=== PATIENT | female | born 1940 | race Hispanic/Latino ===

== ENCOUNTER → 2017-12-12 | Day surgery (SDC) | payer MEDICARE ==
[2017-12-07 12:48] LABS: BASOPHILS % 0.6 % (0.0-1.0); EOSINOPHILS # (AUTO) 0.1 (0.0-0.4); EOSINOPHILS % 1.6 % (0.0-6.0); HEMATOCRIT 36.7 % (34.2-44.1); HEMOGLOBIN 11.6 g/dL (12.0-16.0); LYMPHOCYTES # (AUTO) 1.8 (1.0-3.2); LYMPHOCYTES % 27.2 % (18.0-39.1); MEAN CORPUSCULAR HEMOGLOBIN 28.2 pg (28-32); MEAN CORPUSCULAR HGB CONC 31.6 g/dL (31-35); MEAN CORPUSCULAR VOLUME 89.1 fL (81-99); MONOCYTES # (AUTO) 0.5 (0.2-0.8); MONOCYTES % 6.7 % (4.4-11.3); NEUTROPHILS # (AUTO) 4.3 (2.1-6.9); NEUTROPHILS % 63.6 % (38.7-80.0); PLATELET COUNT 147 x10e3/uL (140-360); RED BLOOD COUNT 4.12 x10e6/uL (3.6-5.1); RED CELL DISTRIBUTION WIDTH 13.7 % (11.7-14.4)
--- NOTE | 2017-12-07 13:10 | Diagnostic Imaging Report ---
PROCEDURE: Frontal and lateral views of the chest. COMPARISON: None. INDICATIONS: PRE-OP, LEFT SHOULDER SURGERY. DENIES CHEST COMPLAINTS FINDINGS: Lines/tubes: None. Lungs: The lungs are well inflated and clear. There is no evidence of pneumonia or pulmonary edema. Pleura: There is no pleural effusion or pneumothorax. Heart and mediastinum: The heart and the mediastinum are normal. Significant atherosclerotic calcification throughout the entire aorta. Bones: No acute bony abnormality. Degenerative changes in the thoracic spine. IMPRESSION: No acute cardiopulmonary disease. Dictated by: Isma Mckeon M.D. on 12/07/2017 at 13:11 Electronically approved by: Isma Mckeon M.D. on 12/07/2017 at 13:11
[2017-12-07 13:19] LABS: ANION GAP 13.4 mmol/L (8-16); CALCIUM 9.8 mg/dL (8.4-10.2); CREATININE, SERUM 0.99 mg/dL (0.57-1.11); POTASSIUM 4.4 mmol/L (3.5-5.1)
[~2017-12-12] MED LIST: ACETAMINOPHEN 1000 MG/100 ML IV ONE; AMLODIPINE BESY10 MG PO; CEFAZOLIN SOD 1 GM VIAL ONE; DEXAMETHASONE SOD PHOS INJ 4 MG/ML VIAL ONE; DOXAZOSIN PO; EPHEDRINE SULFATE INJ 50 MG/10 ML SYR ONE; EPINEPHRINE HCL INJ 1 MG/ML AMP ONE; FENTANYL CITRATE/PF 100MCG/2 ML INJ ONE; HEPARIN SOD (PORCINE) 1000 UNIT/ML SDV ONE; HYDROCODONE/APAP 5MG-325MG TAB ONE; KETOROLAC TROMETHAMINE 30 MG/ML VIAL ONE; LIDOCAINE 2%/ EPINEPHRINE 20ML MDV ONE; LIDOCAINE HCL 2% LOCAL INJ 5 ML SDV VIAL INJ ONE; LOSARTAN POTAS100 MG PO; MELOXICAM PO; METFORMIN HCL500 MG PO; MIDAZOLAM HCL 2 MG/2 ML VIAL ONE; ONDANSETRON HCL INJ 2 MG/ML VIAL ONE; PHENYLEPHRINE HCL 1% 10 MG/ML VIAL ONE; PRAVASTATIN SOD20 MG PO; PROPOFOL IV EMULSION 10 MG/ML 20 ML VIAL ONE; ROCURONIUM BROMIDE 10 MG/ML 5ML VIAL ONE; ROPIVACAINE 0.5% 5 MG/ML 30 ML SDV ONE; SEVOFLURANE INHAL SOLN 250 ML PEN BTL ONE; SODIUM CHLORIDE 0.9% 500ML 500 ML ONE
--- OUTSIDE RECORDS SUMMARY | 2017-12-12 07:18 | XMS REPORT ---
Author Author [facility] Address Unknown Phone Unavailable Care Team Providers Care Official Greeter Name Role Phone CAN WILL Unavailable Unavailable Problems This patient has no known problems. Allergies, Adverse Reactions, Alerts This patient has no known allergies or adverse reactions. Medications This patient has no known medications. Results Test Description Test Time Test Comments Text Results Atomic Results Result Comments CHEST 2 VIEWS [place] [address] Patient Name: ALPESH ROBERTO MR #: [id number] : 1940 Age/Sex: 77/F Req #: [id number] Adm Physician: Ordered by: JUANITO CONTRERAS MD Report #: [id number] Location: OR Room/Bed: Procedure: [id number] DX/CHEST 2 VIEWS Exam Date: Exam Time: REPORT STATUS: Signed PROCEDURE: Frontal and lateral views of the chest. COMPARISON: None. INDICATIONS: PRE-OP, LEFT SHOULDER SURGERY. DENIES CHEST COMPLAINTS FINDINGS: Lines/tubes: None. Lungs: The lungs are well inflated and clear. There is no evidence of pneumonia or pulmonary edema. Pleura: There is no pleural effusion or pneumothorax. Heart and mediastinum: The heart and the mediastinum are normal. Significant atherosclerotic calcification throughout the entire aorta. Bones: No acute bony abnormality. Degenerative changes in the thoracic spine. IMPRESSION: No acute cardiopulmonary disease. Dictated by: Adin Mckeon M.D. on 12/07/2017 at 13:11 Electronically approved by: Adin Mckeon M.D. on 12/07/2017 at 13:11 Dictated By: ADIN MCKEON MD [id number] Transcribed By: ALEX on 12/07/17 1311 COPY TO: JUANITO CONTRERAS MD
--- NOTE | 2017-12-12 14:35 | Operative Report ---
DATE OF PROCEDURE: December 12, 2017 MENTAL HYGIENIST: Avinash Mcmahan PA-C The patient was brought to the operating room for induction of anesthesia. Throughout this case, my PA's assistance was necessary for retraction of soft tissue and positioning of the extremity. This allows for efficient and technically successful execution of the operation and is considered medically necessary. PREOPERATIVE DIAGNOSIS: Left shoulder rotator cuff tear. POSTOPERATIVE DIAGNOSIS: Left shoulder rotator cuff tear. PROCEDURE: Left shoulder arthroscopy, subacromial decompression, debridement of biceps tendon and rotator cuff repair. INDICATIONS: The patient is a 77-year-old lady who has a 3-month history of left shoulder pain and loss of motion. Clinic exam and MRI findings are consistent with a large rotator cuff tear. The findings and options were discussed. The possibility of being unable to repair the tear and needing future surgery such as a shoulder replacement has been explained. She states she understands and wishes to proceed. DESCRIPTION OF PROCEDURE: The patient was brought to the operating room and placed under general anesthetic. She received an interscalene block and prophylactic antibiotics in the holding area. She was positioned in the beach-chair position on the shoulder table. Additional padding and boosters were necessary to accommodate her small stature. A preoperative time out was performed. A posterior arthroscopic portal was established. The shoulder was insufflated with sterile saline. The shoulder was systematically inspected. She was noted to have a massive rotator cuff tear involving the supraspinatus, infraspinatus and a portion of the teres minor. The subscapularis had a partial tear but was otherwise intact. The biceps tendon was frayed and barely intact. This was debrided back to a stable margin at the supraglenoid tubercle. A lateral working portal was established, and the shaver was easily introduced through the rotator cuff tear into the shoulder. The scope was then placed into the subacromial space. A gentle subacromial decompression and bursectomy were performed to facilitate visualization. The lateral gutter was cleared. The tendon was debrided back to more healthy tissue using a combination of a mechanical shaver and biting forceps. The greater tuberosity was gently decorticated. An Arthrex double row SpeedBridge construct was used to repair the tendon. Two pilot control operator holes and bioabsorbable anchors preloaded with FiberTape were placed at the articular margin. These were passed through the tendon using an Arthrex Scorpion suture passer. Tension was applied, and secondary suture anchors were placed into the proximal lateral cortex of the humerus. The tendon was repaired in a construct with [id number] and fvvxftowt-lk-bcuyepoy suture alignment. Nice secure fixation was obtained. The repair was not under significant tension. The arthroscopic instruments were removed, and the portal incisions were closed with nylon stitches. A sterile bandage and an UltraSling were applied. The patient was extubated and transported to the recovery room in stable condition. Job#: [id number]
== END | disposition home or self-care (01) ==
LOC: OR 07:16
PROVIDERS: ATTEND Specialist
DX: M75.122 Complete rotator cuff tear or rupture of left shoulder, not specified as traumatic (principal); I10 Essential (primary) hypertension; I45.10 Unspecified right bundle-branch block; Z01.810 Encounter for preprocedural cardiovascular examination; Z01.812 Encounter for preprocedural laboratory examination; Z79.84 Long term (current) use of oral hypoglycemic drugs; E11.9 Type 2 diabetes mellitus without complications; Z79.82 Long term (current) use of aspirin; Z68.30 Body mass index [BMI] 30.0-30.9, adult
CPT/HCPCS: 29827; 36415 ×2; 71046; 80048; 82948; 85025; 93005; C1713; J0171; J0690; J1100; J1644; J1885; J2001 ×2; J2250; J2370; J2405; J2795; J7040